=== PATIENT | female | born 1965 | race Hispanic/Latino ===

== ENCOUNTER 2017-10-06 16:42 | Outpatient (CLI) | payer OTHER | END 2017-10-06 16:43 | disposition home or self-care (01) | LOC: BICRAD 16:42 | PROVIDERS: ATTEND Family Medicine | DX: M25.511 Pain in right shoulder (principal) ==

== ENCOUNTER 2017-10-09 16:40 | Outpatient (CLI) | payer OTHER | END 2017-10-09 16:41 | disposition home or self-care (01) | LOC: BICRAD 16:40 | PROVIDERS: ATTEND Family Medicine | DX: M54.6 Pain in thoracic spine (principal) | CPT/HCPCS: 72070 ==

== ENCOUNTER 2019-06-15 15:05 | Outpatient (CLI) | payer OTHER ==
--- NOTE | 2019-06-15 15:50 | BD ---
EXAM: Bone densitometry using DEXA HISTORY: 54 yo female. Screening for postmenopausal osteoporosis FINDINGS: L1--bone mineral density 1.051 g/sq cm; T score 0.6 ; Z score 1.3 L2--bone mineral density 1.156 g/sq cm; T score 1.2 ; Z score 2.0 L3--bone mineral density 1.157 g/sq cm; T score 0.7 ; Z score 1.6 L4--bone mineral density 1.159 g/sq cm; T score 0.9 ; Z score 1.8 Total L1-L4--bone mineral density 1.133 g/sq cm; T score 0.8 ; Z score 1.7 Left femoral neck--bone mineral density1.089; T score 2.2 ; Z score 2.7 Total proximal left femur--bone mineral density 1.259; T score 2.6 ; Z score 2.8 IMPRESSION: Normal exam
--- NOTE | 2019-06-15 16:12 | MMO ---
Bilateral MAMMO Bilat Screen [facility]. CLINICAL HISTORY: Patient is 54 years old and is seen for screening. The patient has no family history of breast cancer. The patient has no personal history of cancer. VIEWS: The views performed were: bilateral craniocaudal with tomosynthesis and bilateral mediolateral oblique with tomosynthesis. FILMS COMPARED: The present examination has been compared to prior imaging studies performed at [facility] on 12/29/2014 and 06/16/2017, and at [facility] on 12/02/2013 and 12/08/2013. This study has been interpreted with the assistance of computer-aided detection. MAMMOGRAM FINDINGS: The breasts are heterogeneously dense, which could obscure a lesion on mammography. Finding 1: There are stable benign appearing calcifications seen in both breasts. Finding 2: There are stable benign appearing densities seen in both breasts. There are no suspicious masses, suspicious calcifications, or new areas of architectural distortion. IMPRESSION: THERE IS NO MAMMOGRAPHIC EVIDENCE OF MALIGNANCY. A ROUTINE FOLLOW-UP MAMMOGRAM IN 1 YEAR IS RECOMMENDED. THE RESULTS OF THIS EXAM WERE SENT TO THE PATIENT. ACR BI-RADS Category 2 - Benign finding MAMMOGRAPHY NOTE: 1. A negative mammogram report should not delay a biopsy if a dominant of clinically suspicious mass is present. 2. Approximately 10% to 15% of breast cancers are not detected by mammography. 3. Adenosis and dense breasts may obscure an underlying neoplasm. Reported by: ROSEMARY MARTELL MD Electonically Signed: [id number]
== END 2019-06-15 15:06 | disposition home or self-care (01) ==
LOC: BICMAMMO 15:05
PROVIDERS: ATTEND Family Medicine
DX: Z12.31 Encounter for screening mammogram for malignant neoplasm of breast (principal); Z13.820 Encounter for screening for osteoporosis
CPT/HCPCS: 77063; 77067; 77080